=== PATIENT | male | born 1950 | race Caucasian/White ===

== ENCOUNTER 2023-12-19 00:37 | Inpatient (IN) | payer MEDICARE ==
[~2023-12-19] VITALS: Ht 188 cm; Wt 102.5 kg
[2023-12-19] MEDS: IV NS 1000 ML 1,000 ML IV ONE ×2 (01:22→04:48)
[2023-12-19 01:35] LABS: ALANINE AMINOTRANSFERASE 33 U/L (16-63); ALBUMIN 3.2 g/dL (3.4-5.0); ALKALINE PHOSPHATASE 78 U/L (50-136); ASPARTATE AMINOTRANSFERASE 18 U/L (15-37); BILIRUBIN,TOTAL 2.2 mg/dL (0.2-1.0); CALCIUM 8.2 mg/dL (8.5-10.1); CARBON DIOXIDE 26 mmol/L (21-32); CHLORIDE 101 mmol/L (98-107); GLUCOSE 142 mg/dL (74-106); POTASSIUM 4.1 mmol/L (3.5-5.1); SODIUM SERUM 136 mmol/L (136-145); TOTAL PROTEIN, SERUM 6.4 g/dL (6.4-8.2); UREA NITROGEN, BLOOD 32 mg/dL (7-18)
[2023-12-19 01:37] LABS: BASOPHILS % (AUTO) 0.3 % (0.0-2.0); EOSINOPHILS % (AUTO) 0.6 % (0.0-7.0); HEMATOCRIT 30.9 % (36.7-47.1); HEMOGLOBIN 10.9 g/dL (12.5-16.3); LYMPHOCYTES # (AUTO) 0.5 K/uL (0.8-4.8); MEAN CORPUSCULAR HEMOGLOBIN 31.6 uug (23.8-33.4); MEAN CORPUSCULAR HGB CONC 35 g/dL (32.5-36.3); MEAN CORPUSCULAR VOLUME 89.5 fL (73.0-96.2); MONOCYTES # (AUTO) 0.8 K/uL (0.1-1.30); NEUTROPHILS # (AUTO) 6.2 K/uL (1.8-8.9); NEUTROPHILS % (AUTO) 82.1 % (38.5-71.5); PLATELET COUNT (AUTO) 114 K/uL (152-348); RED BLOOD CELL COUNT(AUTO) 3.45 MIL/uL (4.06-5.63); RED CELL DISTRIBUTION WIDTH 14.9 % (12.1-16.2); WHITE BLOOD COUNT (AUTO) 7.5 K/uL (3.6-10.2)
[2023-12-19 01:38] LABS: DIFFERENTIAL COMMENT 1
[2023-12-19 03:05] LABS: *BILIRUBIN,URIN NEGATIVE (NEGATIVE); *BLOOD, URINE 1+ (NEGATIVE); *COLOR,URINE YELLOW (YELLOW); *KETONES,URINE NEGATIVE (NEGATIVE); *PROTEIN,URINE 2+ (NEGATIVE); *UROBILINOGEN,URINE 0.2 E.U./dl (NORMAL); LEUKOCYTE ESTERASE ,URINE 3+ (NEGATIVE); NITRITE, URINE POSITIVE (NEGATIVE); PH,URINE 8.5 (5.0-8.0); UGLUCOSE NEGATIVE (NEGATIVE)
[2023-12-19 03:43] LABS: *CLARITY,URINE SLIGHTLY CLOUDY (CLEAR)
[2023-12-19] MEDS ORDERED: levoFLOXacin 500 MG TABLET PO ONE (04:00)
[2023-12-19] MEDS ORDERED: LEVO500T90 PO (04:00)
[2023-12-19 04:03] LABS: BACTERIA,URINE MANY /HPF (NONE SEEN); SQUAMOUS EPITHELIAL CELL,UR NONE SEEN /HPF (NONE SEEN); WBC,URINE TNTC /HPF (0-3)
[2023-12-19] MEDS ORDERED: levoFLOXacin 500 MG/D5W 100 ML ONE (04:17)
[2023-12-19] MEDS: levoFLOXacin 500 MG/D5W 100ML PIGGYBACK IV ONE (04:48)
[2023-12-19] MEDS ORDERED: IBUPROFEN 600 MG TABLET ONE (05:34)
[2023-12-19] MEDS: IBUPROFEN 600 MG TABLET PO ONE (05:39)
[2023-12-19] MEDS ORDERED: ACETAMINOPHEN ES 500 MG TABLET ONE (06:52)
[2023-12-19] MEDS: ACETAMINOPHEN 325 MG TABLET PO ONE (07:07)
[2023-12-19 09:36] VITALS: BP 111/67; TEMP 98.3; O2SAT 98
[2023-12-19] MEDS ORDERED: ONDANSETRON 4 MG/2 ML VIAL IV PRN (10:45)
[2023-12-19] MEDS ORDERED: MEROPENEM 1 G in IV NORMAL SALINE 100 ML IV SCH (10:45)
[2023-12-19] MEDS ORDERED: REMEDY ESSENTIAL ZINC PASTE 113 GM TP PRN (10:45)
[2023-12-19] MEDS: ENOXAPARIN SODIUM 40 MG/0.4 ML DISP.SYRIN SQ SCH (11:22)
[2023-12-19] MEDS: IV NS 1000 ML 1,000 ML IV PRN (11:45)
[2023-12-19] MEDS: MEROPENEM 1 G in IV NORMAL SALINE 100 ML IV SCH (14:54)
[2023-12-19] MEDS: ACETAMINOPHEN 325 MG TABLET PO PRN (15:06)
[2023-12-19 15:51] VITALS: BP 119/63; TEMP 100.2; O2SAT 98
[2023-12-19] MEDS ORDERED: GABAPENTIN 400 MG CAPSULE PO SCH (17:00)
[2023-12-19] MEDS: CARVEDILOL 6.25 MG TABLET PO SCH (17:57)
[2023-12-19 20:00] VITALS: BP 128/72; TEMP 102.7; O2SAT 97
[2023-12-19] MEDS: hydrALAZINE HCL 25 MG TABLET PO SCH (21:04)
[2023-12-19 22:29] VITALS: TEMP 100.2
[2023-12-20] VITALS (8 sets, daily range): BP systolic 113–144; BP diastolic 67–79; TEMP 98.3–102.5; O2SAT 95–99
[2023-12-20] MEDS: PANTOPRAZOLE SODIUM 40 MG TABLET.DR PO SCH ×2 (06:07→06:34)
[2023-12-20 07:10] LABS: CARBON DIOXIDE 22 mmol/L (21-32); CHLORIDE 105 mmol/L (98-107); CHOLESTEROL 91 mg/dL (<200); CREATININE 1.8 mg/dL (0.6-1.3); GLUCOSE 121 mg/dL (74-106); HDL CHOLESTEROL 50 mg/dL (40-60); MAGNESIUM 1.8 mg/dL (1.8-2.4); PHOSPHOROUS 2.4 mg/dL (2.5-4.9); POTASSIUM 3.6 mmol/L (3.5-5.1); SODIUM SERUM 138 mmol/L (136-145); TRIGLYCERIDES 73 MG/DL (30-150); UREA NITROGEN, BLOOD 32 mg/dL (7-18)
[2023-12-20 07:22] LABS: CALCIUM 7.7 mg/dL (8.5-10.1)
[2023-12-20 07:38] LABS: BASOPHILS % (AUTO) 0.3 % (0.0-2.0); EOSINOPHILS % (AUTO) 0.1 % (0.0-7.0); HEMATOCRIT 27.4 % (36.7-47.1); HEMOGLOBIN 9.6 g/dL (12.5-16.3); LYMPHOCYTES # (AUTO) 0.5 K/uL (0.8-4.8); MEAN CORPUSCULAR HEMOGLOBIN 31.2 uug (23.8-33.4); MEAN CORPUSCULAR HGB CONC 35 g/dL (32.5-36.3); MEAN CORPUSCULAR VOLUME 89.3 fL (73.0-96.2); MONOCYTES # (AUTO) 0.6 K/uL (0.1-1.30); MONOCYTES % (AUTO) 11.6 % (0.0-11.0); NEUTROPHILS # (AUTO) 4.3 K/uL (1.8-8.9); PLATELET COUNT (AUTO) 103 K/uL (152-348); RED BLOOD CELL COUNT(AUTO) 3.06 MIL/uL (4.06-5.63); RED CELL DISTRIBUTION WIDTH 15.4 % (12.1-16.2); WHITE BLOOD COUNT (AUTO) 5.5 K/uL (3.6-10.2)
[2023-12-20 07:42] LABS: DIFFERENTIAL COMMENT 1
[2023-12-20] MEDS: AMLODIPINE 2.5 MG TABLET PO SCH (08:45)
[2023-12-20] MEDS: ALLOPURINOL 100 MG TABLET PO SCH (08:45)
[2023-12-20] MEDS: ALFUZOSIN HCL 10 MG TAB.SR.24H PO SCH (08:45)
[2023-12-20] MEDS: ESCITALOPRAM OXALATE 10 MG TABLET PO SCH (08:45)
[2023-12-20] MEDS: LISINOPRIL 20 MG TABLET PO SCH (08:45)
[2023-12-20] MEDS: MAGNESIUM HYDROXIDE 30 ML LIQUID UDC PO PRN (14:17)
[2023-12-20] MEDS: NEUTRA PHOS PACKET PO ONE (16:00)
[2023-12-20] MEDS: GABAPENTIN 300 MG CAPSULE PO SCH (17:57)
[2023-12-21 05:58] VITALS: BP 159/85; TEMP 98.4; O2SAT 98
[2023-12-21 07:06] LABS: BASOPHILS % (AUTO) 0.4 % (0.0-2.0); HEMATOCRIT 25.9 % (36.7-47.1); HEMOGLOBIN 9.2 g/dL (12.5-16.3); LYMPHOCYTES # (AUTO) 0.6 K/uL (0.8-4.8); LYMPHOCYTES % (AUTO) 14.8 % (20.5-51.5); MEAN CORPUSCULAR HEMOGLOBIN 31.3 uug (23.8-33.4); MEAN CORPUSCULAR HGB CONC 35 g/dL (32.5-36.3); MEAN CORPUSCULAR VOLUME 88.4 fL (73.0-96.2); MONOCYTES # (AUTO) 0.6 K/uL (0.1-1.30); MONOCYTES % (AUTO) 13.9 % (0.0-11.0); NEUTROPHILS % (AUTO) 69.9 % (38.5-71.5); PLATELET COUNT (AUTO) 110 K/uL (152-348); RED BLOOD CELL COUNT(AUTO) 2.93 MIL/uL (4.06-5.63); RED CELL DISTRIBUTION WIDTH 15.2 % (12.1-16.2); WHITE BLOOD COUNT (AUTO) 4.2 K/uL (3.6-10.2)
[2023-12-21 07:21] LABS: CARBON DIOXIDE 26 mmol/L (21-32); CHLORIDE 105 mmol/L (98-107); CREATININE 1.5 mg/dL (0.6-1.3); GLUCOSE 121 mg/dL (74-106); MAGNESIUM 1.8 mg/dL (1.8-2.4); PHOSPHOROUS 2.1 mg/dL (2.5-4.9); SODIUM SERUM 139 mmol/L (136-145); UREA NITROGEN, BLOOD 27 mg/dL (7-18)
[2023-12-21 07:28] LABS: DIFFERENTIAL COMMENT 1
[2023-12-21 14:20] VITALS: BP 148/80; TEMP 98; O2SAT 98
[2023-12-21 14:27] VITALS: BP 133/74
[2023-12-21] MEDS: NEUTRA PHOS PACKET PO ONE (15:45)
[2023-12-21] MEDS ORDERED: SWABABLE VALVE TRANSFER SET EA MC ONE (16:10)
[2023-12-21] MEDS ORDERED: IV NORMAL SALINE 250 ML IV ONE (16:10)
[2023-12-21] MEDS ORDERED: IOHEXOL 350 100 ML INFUS..BTL ONE (16:10)
[2023-12-21] MEDS ORDERED: ALLO100T56 PO (16:17)
[2023-12-21] MEDS ORDERED: ESCI20TA PO (16:17)
[2023-12-21] MEDS ORDERED: CARV6.252 PO (16:17)
[2023-12-21] MEDS ORDERED: ALFU10TA PO (16:17)
[2023-12-21] MEDS ORDERED: GABA800T PO (16:17)
[2023-12-21] MEDS ORDERED: AMLO2.5T2 PO (16:17)
[2023-12-21] MEDS ORDERED: GABA800T11 PO (16:17)
[2023-12-21] MEDS ORDERED: PANT40TA49 PO (16:19)
[2023-12-21] MEDS ORDERED: HYDR-894 PO (16:19)
[2023-12-21] MEDS ORDERED: ROSU20TA2 PO (16:19)
[2023-12-21] MEDS ORDERED: LISI40TA13 PO (16:19)
[2023-12-21 16:24] VITALS: BP 141/86; TEMP 98; O2SAT 99
[2023-12-21 20:00] VITALS: BP 145/81; TEMP 98.2; O2SAT 99
[2023-12-22 06:02] VITALS: BP 139/81; TEMP 98.2; O2SAT 96
[2023-12-22 06:11] LABS: BASOPHILS % (AUTO) 0.3 % (0.0-2.0); EOSINOPHILS # (AUTO) 0.1 K/uL (0.0-0.7); EOSINOPHILS % (AUTO) 2.2 % (0.0-7.0); HEMOGLOBIN 9.1 g/dL (12.5-16.3); LYMPHOCYTES # (AUTO) 0.7 K/uL (0.8-4.8); LYMPHOCYTES % (AUTO) 18.1 % (20.5-51.5); MEAN CORPUSCULAR HEMOGLOBIN 31.2 uug (23.8-33.4); MEAN CORPUSCULAR HGB CONC 35 g/dL (32.5-36.3); MEAN CORPUSCULAR VOLUME 88.5 fL (73.0-96.2); MONOCYTES # (AUTO) 0.5 K/uL (0.1-1.30); MONOCYTES % (AUTO) 12.4 % (0.0-11.0); NEUTROPHILS # (AUTO) 2.6 K/uL (1.8-8.9); PLATELET COUNT (AUTO) 124 K/uL (152-348); RED BLOOD CELL COUNT(AUTO) 2.93 MIL/uL (4.06-5.63); RED CELL DISTRIBUTION WIDTH 15.1 % (12.1-16.2); WHITE BLOOD COUNT (AUTO) 3.9 K/uL (3.6-10.2)
[2023-12-22 06:26] LABS: DIFFERENTIAL COMMENT 1
[2023-12-22 07:09] LABS: CALCIUM 8.3 mg/dL (8.5-10.1); CARBON DIOXIDE 24 mmol/L (21-32); CHLORIDE 106 mmol/L (98-107); CREATININE 1.3 mg/dL (0.6-1.3); GLUCOSE 100 mg/dL (74-106); MAGNESIUM 2.1 mg/dL (1.8-2.4); PHOSPHOROUS 3.3 mg/dL (2.5-4.9); POTASSIUM 3.7 mmol/L (3.5-5.1); SODIUM SERUM 139 mmol/L (136-145); UREA NITROGEN, BLOOD 23 mg/dL (7-18)
[2023-12-22] MEDS ORDERED: AMOX-427 PO (12:18)
[2023-12-22 12:38] VITALS: BP 146/81; TEMP 98; O2SAT 99
[2023-12-22 13:06] LABS: *BILIRUBIN,URIN NEGATIVE (NEGATIVE); *BLOOD, URINE 1+ (NEGATIVE); *CLARITY,URINE CLEAR (CLEAR); *COLOR,URINE YELLOW (YELLOW); *KETONES,URINE NEGATIVE (NEGATIVE); *PROTEIN,URINE TRACE (NEGATIVE); *UROBILINOGEN,URINE 0.2 E.U./dl (NORMAL); LEUKOCYTE ESTERASE ,URINE TRACE (NEGATIVE); NITRITE, URINE NEGATIVE (NEGATIVE); UGLUCOSE NEGATIVE (NEGATIVE)
[2023-12-22 13:27] LABS: BACTERIA,URINE FEW /HPF (NONE SEEN); SQUAMOUS EPITHELIAL CELL,UR FEW /HPF (NONE SEEN); WBC,URINE 80-100 /HPF (0-3)
== END 2023-12-22 15:00 | disposition home or self-care (01) | DRG 871 ==
LOC: ER 00:40 → TELE3 08:54 → MEDSURG3 12-20 08:00
PROVIDERS: ADMIT Nurse Practitioner Acute Care; ATTEND Nurse Practitioner Acute Care
DX: A41.59 Other Gram-negative sepsis (principal); N17.0 Acute kidney failure with tubular necrosis; N39.0 Urinary tract infection, site not specified; T82.857A Stenosis of other cardiac prosthetic devices, implants and grafts, initial encounter; R17 Unspecified jaundice; R65.20 Severe sepsis without septic shock; Z95.3 Presence of xenogenic heart valve; Z98.1 Arthrodesis status; Z90.79 Acquired absence of other genital organ(s); I08.3 Combined rheumatic disorders of mitral, aortic and tricuspid valves; D63.1 Anemia in chronic kidney disease; R60.0 Localized edema; Z98.890 Other specified postprocedural states; D69.6 Thrombocytopenia, unspecified; G90.8 Other disorders of autonomic nervous system; I71.21 Aneurysm of the ascending aorta, without rupture; K29.70 Gastritis, unspecified, without bleeding; G47.00 Insomnia, unspecified
CPT/HCPCS: 36415; 70450; 71045; 83605; 83735; 84100; 85025; 87040; 93307; A9150; G0378; J1650; J1956; J2185; J7040; J8499; Q9967